=== PATIENT | female | born 1950 | race Caucasian/White ===

== ENCOUNTER → 2018-05-27 10:12 | Outpatient (CLI) | payer MEDICARE, OTHER, SELFPAY ==
--- NOTE | 2018-05-27 10:15 | BI_ITS ---
MAMMOGRAPHY - BILATERAL SCREENING 3-D LYNNETTE SYNTHESIS REASON FOR EXAM: Female, 67 years old. Bilateral Screening 3-D tomosynthesis PERTINENT HISTORY: Mother and grandmother with breast cancer.. TECHNIQUE: 2-D mammograms and 3-D Lynnette synthesis of the breast (s) were performed. CAD was performed. COMPARISON: None. FINDINGS: The breast composition is heterogeneously dense that can obscure small breast masses. Scattered benign calcifications are seen. No dense spiculated masses or suspicious microcalcifications are identified. No architectural distortion is identified. There is no skin thickening or retraction. There has been no significant change since the prior study. BI/SCREENING MAMM (CAD), BILAT IMPRESSION: No mammographic signs of malignancy. Routine yearly mammograms recommended. ASSESSMENT CATEGORY: BIRADS Category 1: Negative. A letter regarding these results will be sent to the patient by the facility within 30 days. FOLLOW UP RECOMMENDATION: Yearly follow up mammogram recommended. (A) Approximately 10% of breast cancers are not detected by mammography. A normal mammogram should not delay biopsy of a clinically suspicious abnormality. Electronically Signed: Sylvester Parker MD at 12:47 EDT , Service support ,
--- NOTE | 2018-05-27 10:18 | BD_ITS ---
STUDY: DUAL ENERGY X-RAY ABSORPTIOMETRY / DXA REASON FOR EXAM: Female, 67 years old. Postmenopausal screening TECHNIQUE: Bone Mineral Density (BMD) measurements of lumbar spine and bilateral hips were obtained. COMPARISON: 2015 FINDINGS: Lumbar Spine (L1-L4): g/cm2 (1.025) / T-score (-1.2) / Z-score (0.5) Findings are suggestive of osteopenia with a moderate fracture risk. Left Femur Total: g/cm2 (0.816) / T-score (-1.5) / Z-score (-0.1) Left Femoral Neck: g/cm2 (0.750) / T-score (-2.1) / Z-score (-0.4) Right Femur Total: g/cm2 (0.795) / T-score (-1.7) / Z-score (-0.2) Right Femoral Neck: g/cm2 (0.746) / T-score (-2.1) / Z-score (-0.4) The T-Scores on the most recent prior examination were: Lumbar Spine (L1-L4): There has been no change of bone density since the previous examination. BD/Dexa Bone Density Study IMPRESSION: The patient is considered osteopenic as outlined below according to World Jb Organization (WHO) criteria with a moderate fracture risk. There has been no significant change of bone density since the previous examination. Reference Information: The T-score is the number of standard deviations above or below the standard which is normal for young adults at their peak bone mineral density. The World Health Organization (WHO) interprets the T-scores as follows: Above -1 Normal bone density Between -1 and -2.5 Osteopenia Equal to / or below -2.5 Osteoporosis As a practical clinical guideline, osteopenia may be graded as follows: Mild -1 through -1.5 Moderate -1.6 through -2.0 Severe -2.1 through -2.4 The Z-score is the number of standard deviations above or below age-matched controls. A Z-score of less than -1.5 would be considered abnormal. References: 1. NIH Osteoporosis and Related Bone Diseases http://www.osteo.org 2. International Society for Clinical Densitometry http://www.iscd.org 3. National Osteoporosis Foundation http://www.nof.org Electronically Signed: Sylvester Parker MD at 8:00 EDT , Service support ,
== END ==
PROVIDERS: Family Provider Internal Medicine; PCP Internal Medicine; Visit Provider Internal Medicine
DX: Z12.31 Encounter for screening mammogram for malignant neoplasm of breast (principal); Z78.0 Asymptomatic menopausal state
CPT/HCPCS: 77063; 77067; 77080

== ENCOUNTER 2020-12-20 13:14 | Outpatient (RCR) | payer MEDICARE, OTHER, SELFPAY | END 2020-12-20 23:59 | LOC: IMMUN 13:14 | PROVIDERS: PCP Internal Medicine; Referring Provider Family Medicine; Visit Provider Family Medicine | DX: Z23 Encounter for immunization (principal) | CPT/HCPCS: 0011A; 0012A; 91301 ==

== ENCOUNTER 2022-11-12 09:30 | Outpatient (RCR) | payer MEDICARE, OTHER, SELFPAY ==
--- NOTE | 2022-11-06 15:29 | HP.PTEVAL ---
Patient's Visit Information STEFAN MORAN is a 72 year old F referred to Physical Therapy by Dr. 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 Date of Evaluation: 11/06/22 Physical Therapist: Shun Reddy, PT, Cert MDT, OCS - Visit Plan Frequency: 2x /Week Duration: 4 Weeks Plan: PT INTERVETIONS LUMBAR FLEXION ,DLS ,POSTURAL EX'S ,LE NFLEXABLITY AND MODALTIES FOR PAIN - Subjective This 72 y/o female presents to physical therapy with lumbar decompression L2-5 revision right L3-4 . Patient surgery 09/16/[address] Stafford at [facility]. Patient was in hospital 4 days due to pain unable due pain meds. Patient d/c to lumbar brace. Initially no lifting 10 #.Recently seen 3weeks doing good ,then 2 weeks developed more LS region and radiates to hip . Prior to surgery patient had leg pain. Patient had discectomy lumbar 25 years ago. No meds . Patient denies paresthesia/tingling . Coughing/sneezing-. Bowel/bladder -. Pain worse at night difficulty sleeping. Aggravating walking/standing ,bending and housework such as vacuuming. Alleviates factors none. Patient had MRI prior to surgery. No pain management or PT prior to surgery. Patient pain affects QOL and function . SOCAIL: . VOCATION: retired - Pain Bilateral Back Pain Intensity (Out of 10): 7 Pain Intensity Range: 10 Comment: walking - Objective POSTURE: mild forward posture. GAIT: reciprocal pattern. SYMMTRIES: align. PALPTION: unremarkable. NEURO: denies paresthesia/tingling ,reflexes L3-4,L4-5 ,L5-S1 2/3. MMT: quads/hams 4/5 ,hip flexion ( peak force ) 12.3 ,hip abduction 10.3. LUMBAR ROM: flexion min loss ,extension mod less ,side glides mod loss. FLEXABILITY: hamstrings min tight. - Special Tests L/S Slump test left side: Negative L/S Slump test right side: Negative L/S Left Straight Leg Raise: Negative L/S Right Straight Leg Raise: Negative - Balance/Special Test Scores Oswestry Low Back Score: 32 - Goals Goal 1:: Patient to be I with HEP lumbar Goal Time Frame: 4-6 Weeks Goal 2:: Patient to demonstrate 50% improvement with decrease pain and improved function Goal Time Frame: 4-6 Weeks Goal 3:: Patient to improve lumbar ROM for function of recovery for ADLS and run sweeper Goal Time Frame: 4-6 Weeks Goal 4:: Patient to improve peak force of hips to 10 to improve QOL and function Goal Time Frame: 4-6 Weeks Goal 5:: Patient to improve back oswestry score by 5 points to improve QOL and function Goal Time Frame: 4-6 Weeks - Rehabilitation Potential Physical Therapy Diagnosis: This patient underwent s/p lumbar decompression L2-5 revision right L3-4 with pain ,weakness hips decrease ROM for function of recovery affecting ADLS and housework tasks thus benefit from skilled PT Rehabilitation Potential: Good - Anticipated Interventions Patient/Client Instruction: Educate patient on: Condition, Plan of Care For the Purpose of:: To decrease pain, To increase ROM, To improve muscle performance and motor function, To improve ability to perform ADL's, To increase tolerance to activity/condition/position, To improve performance and independence with ADL's, To improve ability of physical actions for home/community/work/leisure, To improve health of tissue, To decrease soft tissue restriction, To increase flexibility/ROM, To reduce risk of recurrence Therapeutic Exercise to Include: Strength training, Endurance training, Body mechanics, Postural training, Flexibilty training, Active ROM, Dynamic Lumbar Stabilization For the Purpose of:: To decrease pain, To increase ROM, To improve muscle performance and motor function, To improve ability to perform ADL's, To increase tolerance to activity/condition/position, To improve ability of physical actions for home/community/work/leisure, To improve health of tissue, To decrease soft tissue restriction, To increase flexibility/ROM TENS: Yes IF ES: Yes Cryotherapy (ice pack, ice massage): Yes Thermo therapy (hot pack): Yes Ultrasound (thermal/non thermal): Yes For the Purpose of:: To decrease pain, To increase ROM, To improve nutrient delivery to tissue, To increase oxygenation perfusion, To improve health of tissue, To decrease soft tissue restriction Thank you for the opportunity to evaluate your patient. For Medicare and Medicare HMO plans, please review the plan of care and approve it. It will need to be FAXED BACK to us at [phone] for Medicare purposes. For Medicare only, by signing this I certify the plan of care. Please let me know if there are questions or concerns regarding this plan of care. Physician Signature: Date:
--- NOTE | 2023-05-13 13:25 | HP.PTDCNRP_ITS ---
Patient Information Patient Information: STEFAN MORAN was seen in my office for initial evaluation on 11/06/22. The following Plan of Care was established for this patient: POC Established Initial Frequency: 2x /Week Initial Duration: 4 Weeks Anticipated Interventions Patient/Client Instruction: Educate patient on: Condition and Plan of Care For the Purpose of:: To decrease pain, To increase ROM, To improve muscle performance and motor function, To improve ability to perform ADL's, To increase tolerance to activity/condition/position, To improve performance and i ndependence with ADL's, To improve ability of physical actions for home/community/work/leisure, To improve health of tissue, To decrease soft tissue restriction, To increase flexibility/ROM and To reduce risk of recurrence Therapeutic Exercise to Include: Strength training, Endurance training, Body mechanics, Postural training, Flexibilty training, Active ROM and Dynamic Lumbar Stabilization For the Purpose of:: To decrease pain, To increase ROM, To improve muscle performance and motor function, To improve ability to perform ADL's, To increase tolerance to activity/condition/position, To improve ability of physical actions for home/community/work/leisure, To improve health of tissue, To decrease soft tissue restriction and To increase flexibility/ROM TENS: Yes IF ES: Yes Cryotherapy (ice pack, ice massage): Yes Thermo therapy (hot pack): Yes Ultrasound (thermal/non thermal): Yes For the Purpose of:: To decrease pain, To increase ROM, To improve nutrient delivery to tissue, To increase oxygenation perfusion, To improve health of tissue and To decrease soft tissue restriction Last Seen Last Seen: This patient was last seen in our office . Pertinent comments regarding their Physical therapy will appear below: Patient seen for PT for lumbar stenosis for HEP At this point I will be discontinuing this patient from physical therapy. I would be happy to see this patient again in the future if found appropriate by the physician. Thank you! Shun Reddy, PT, Cert MDT, OCS Balance/Gait/Functional tests Balance/Special Test Scores Oswestry Low Back Score: 0
== END 2022-11-12 19:00 | disposition home or self-care (01) ==
LOC: PT 09:30
PROVIDERS: PCP Internal Medicine; Referring Provider Orthopaedic Surgery Orthopaedic Surgery of the Spine; Visit Provider Orthopaedic Surgery Orthopaedic Surgery of the Spine
DX: M48.062 Spinal stenosis, lumbar region with neurogenic claudication (principal)
CPT/HCPCS: 97110; 97162

== ENCOUNTER → 2023-05-12 | Outpatient (CLI) | payer MEDICARE, OTHER, SELFPAY ==
[2023-05-16 03:07] LABS: Clam <0.10 kU/L (Class 0); Codfish <0.10 kU/L (Class 0); Corn <0.10 kU/L (Class 0); Egg, White <0.10 kU/L (Class 0); Milk (Cow) <0.10 kU/L (Class 0); Peanut <0.10 kU/L (Class 0); SCALLOP <0.10 kU/L (Class 0); SESAME SEED <0.10 kU/L (Class 0); Shrimp <0.10 kU/L (Class 0); Soybean <0.10 kU/L (Class 0); Walnut, (Food) <0.10 kU/L (Class 0); Wheat <0.10 kU/L (Class 0)
== END | disposition home or self-care (01) ==
LOC: LAB 14:03
PROVIDERS: PCP Internal Medicine; Referring Provider Otolaryngology; Visit Provider Otolaryngology
DX: T78.40XA Allergy, unspecified, initial encounter (principal)
CPT/HCPCS: 36415; 86003

== ENCOUNTER 2023-08-12 15:13 | Emergency (ER) | payer MEDICARE, OTHER, SELFPAY ==
[2023-08-12 15:14] VITALS: BP 141/88; PULSE 64; RESP 18; TEMP 36.2; O2SAT 99
--- NOTE | 2023-08-12 15:58 | VDLE_ITS ---
Reason For Study: RLE PAIN RIGHT GSV is normal. CFV is compressible, spontaneous, phasic, competent and demonstrates normal augmentation. FV is compressible, spontaneous, phasic, competent and demonstrates normal augmentation. POP V is compressible, spontaneous, phasic, competent and demonstrates normal augmentation. T/P Trunk is compressible. PTV is compressible. RT PerV is compressible. Procedure This is a venous duplex using B-mode, color flow and spectral Doppler. Exam performed in department. The exam was diagnostic. A preliminary report was called and/or faxed to ED DEISI Mike. VL/Venous Duplex US, Unilateral Interpretation Summary Deep veins of the right lower extremity are patent and compressible segmentally . There is no evidence of right lower extremity deep vein thrombosis. The right great sapheno us vein appears patent and compressible segmentally. Ordering Physician: Sarah Cox Referring Physician: Emily Kyle M.D. Performed By: Leonidas Westfall RVT
--- NOTE | 2023-08-12 16:15 | RAD_ITS ---
INDICATION: cough EXAMINATION/TECHNIQUE: X-RAY - XR Chest 1 View COMPARISON: FINDINGS: LINES/DEVICES: None. LUNGS: No consolidation, edema or effusion. No pneumothorax. MEDIASTINUM AND CARDIOVASCULAR STRUCTURES: Cardiac silhouette not enlarged. Central airways and mediastinal contour are unremarkable. BONES AND SOFT TISSUES: Dextroscoliosis. RAD/Chest 1 View (Portable) IMPRESSION: No radiographic evidence of acute cardiopulmonary disease. Electronically Signed: Lalo Nelson DO at 16:37 EDT ,
[2023-08-12] MEDS: traMADol 50 MG Tablet PO (16:19)
[2023-08-12] MEDS: Ondansetron ODT 4 MG Tablet PO (16:19)
--- NOTE | 2023-08-12 16:35 | EX.ED.DYSGE1 ---
HPI History of Present Illness Chief Complaint: Lower Extremity Injury Detail of Chief Complaint: Right leg pain Informant: patient Onset/Context/Timing Onset: Yesterday Narrative Narrative: Patient presents secondary to sharp pain in the lower portion of her right leg. Patient was diagnosed with COVID on July 27. She has tested negative since that time. She states she continues to have cough with intermittent dizziness. Last evening she started getting pain in the back of her right thigh. Today she has had sharp severe pain in her right calf. She took ibuprofen prior to arrival. [facility] Medical History Deviated septum Hyperlipidemia Insomnia NAION (non-arteritic anterior ischemic optic neuropathy), left eye Optic nerve ischemia POAG (primary open-angle glaucoma) Raynauds phenomenon Syncope Home Medications zolpidem 5 mg tablet 5 mg PO QHS 12/22/16 [History Last Taken 12/21/16] atorvastatin 10 mg tablet 10 mg PO QHS 04/27/23 [History Last Taken Unknown] magnesium oxide 400 mg PO DAILY 04/27/23 [History Last Taken Unknown] netarsudil 0.02 % eye drops (Rhopressa) 1 drp ophthalmic (eye) QPM 04/27/23 [History Last Taken Unknown] sertraline 100 mg tablet 100 mg PO DAILY 04/27/23 [History Last Taken Unknown] tafluprost (PF) 0.0015 % eye drops in a dropperette 1 drp ophthalmic (eye) QPM 04/27/23 [History Last Taken Unknown] denosumab 60 mg/mL subcutaneous syringe (Prolia) 60 mg subcut [id number] 06/10/23 [History Last Taken Unknown] hydrocodone-acetaminophen 5-325mg 5mg-325mg 1 tab PO Q8H PRN Pain 3 days #10 TABLETS 08/12/23 [Rx Last Taken Unknown] ondansetron 4 mg disintegrating tablet 4 mg PO Q8H PRN PRN Nausea #10 tabs 08/12/23 [Rx Last Taken Unknown] prednisone 20 mg tablet 40 mg (2 x 20 mg) PO DAILY #10 tabs 08/12/23 [Rx Last Taken Unknown] Allergy/AdvReac Type Severity Reaction Status Date / Time azithromycin Allergy Unknown Vomiting Verified 08/12/23 15:14 benzonatate Allergy Unknown Vomiting Verified 08/12/23 15:14 ciprofloxacin Allergy Unknown Diarrhea Verified 08/12/23 15:14 metronidazole [From Flagyl] Allergy Unknown Diarrhea Verified 08/12/23 15:14 tapentadol Allergy Unknown Vomiting Verified 08/12/23 15:14 Penicillins Allergy Anaphylaxis Verified 08/12/23 15:14 latanoprost AdvReac Unknown burning Verified 08/12/23 15:14 eyes codeine AdvReac Upset Verified 08/12/23 15:14 Stomach Opioids - Morphine Analogues AdvReac Upset Verified 08/12/23 15:14 [narcotics] Stomach Family History Mother Breast cancer Diabetes Hypertension Cataract Father COPD (chronic obstructive pulmonary disease) Cataract Prostate cancer Grandmother CVA (cerebral vascular accident) Grandmother Diabetes Surgical History History of appendectomy History of augmentation of both breasts History of cholecystectomy History of laminectomy History of partial colectomy History of removal of implants of both breasts History of right breast biopsy History of shoulder surgery History of tonsillectomy and adenoidectomy Social History Smoking Status: Never smoker alcohol intake: current alcohol intake frequency: 0-2 drinks per day Alcohol type: wine substance use type: does not use caffeine: Yes Type: coffee Number of servings: 2 ROS ROS ED Constitutional Constitutional ED: Denies chills or fever(s) Eyes Eyes: Denies discharge from eye(s) ENT ENT ED: Denies discharge from eye(s), rhinorrhea or sore throat Cardiovascular Cardiovascular: Denies chest pain or palpitations Respiratory/Chest Respiratory/Chest: Reports cough; Denies dyspnea Gastrointestinal Gastrointestinal: Denies abdominal pain, nausea or vomiting Genitourinary Genitourinary ED: Denies dysuria Musculoskeletal Musculoskeletal: Reports extremity pain; Denies back pain Integumentary Denies Abrasions or rash Neurologic Neurologic: Denies headache(s) or weakness Psychiatric Psychiatric: Denies anxiety or depression Allergic/Immunologic Allergic/Immunologic ED: Denies lip swelling or urticaria EXAM Physical Exam Const Vital Signs: 08/12/23 15:14 Temperature 97.1 F L Temperature Source Temporal Pulse Rate 64 Respiratory Rate 18 Blood Pressure 141/88 H Blood Pressure Mean 105 Pulse Ox 99 Oxygen Delivery Method Room Air Positive well nourished and well developed General Appearance ED: well developed HEENT Reports moist mucous membranes Eyes EOMs intact bilaterally Neck no lymphadenopathy Chest Wall inspection of chest normal and palpation of chest normal Resp normal respiratory effort and clear to auscultation bilaterally Cardio regular rate and regular rhythm GI non-tender Palpation: soft Back/Spine no CVA tenderness Back/Spine Narrative: No thoracic or lumbar tenderness. No tenderness over the sciatic notch. Extremity normal to inspection Extremity Narrative: No significant leg edema noted. Good distal pulses. Patient reports muscular pain in her right calf. No significant skin changes noted. Neuro oriented x3 and no sensory deficits noted Motor Exam: strength 5/5 throughout Psych Mood & Affect: anxious Skin no rashes or lesions noted MDM MDM MDM Narrative Medical decision making narrative: Patient given tramadol and Zofran for pain. Right lower extremity ultrasound obtained to evaluate for DVT. Portable chest x-ray obtained to evaluate for infiltrate. Radiography Diagnostic Testing: Clinical Impression(s) from Imaging Studies Chest X-Ray 08/12/23 16:15 IMPRESSION: No radiographic evidence of acute cardiopulmonary disease. Electronically Signed: Lalo Nelson DO at 16:37 EDT Reading Location ID and State: [facility] / [place] Tel [phone], Service support , Treatment and Re-Evaluation :: Portable chest x-ray per my interpretation feels no focal infiltrate. Radiology interpretation is reviewed and agrees. Venous Doppler of the right lower extremity reveals no evidence of DVT. Patient reports no significant improvement in her pain after tramadol, but she did not get sick from the medicine when we gave Zofran with it. I will write her a short course of [place] and give her nausea medication. We discussed taking the Zofran 20 minutes before the pain pill and eating when she takes the pain medicine. This should help avoid the nausea and vomiting that she typically gets with pain pills. I will also write her a short burst of prednisone as I believe her pain is nerve related. She has a cane that she used here to ambulate and has a walker at home that she can use to help her get around. Discharge Plan Triage Chief Complaint: Lower Extremity Injury ED Provider: Sarah Cox Dx/Rx/DC Orders Clinical Impression: Acute leg pain, Radiculopathy Instructions: ED Sciatica Prescriptions: New prednisone 20 mg tablet 40 mg PO DAILY Qty: 10 0RF ondansetron 4 mg tablet,disintegrating 4 mg PO Q8H PRN PRN (Reason: Nausea) Qty: 10 0RF hydrocodone-acetaminophen 5-325 mg tablet 1 tab PO Q8H PRN (Reason: Pain) 3 Days Qty: 10 0RF No Action atorvastatin 10 mg tablet 10 mg PO QHS sertraline 100 mg tablet 100 mg PO DAILY tafluprost (PF) 0.0015 % dropperette 1 drp ophthalmic (eye) QPM Rhopressa 0.02 % drops 1 drp ophthalmic (eye) QPM magnesium oxide 400 mg magnesium tablet 400 mg PO DAILY Prolia 60 mg/mL syringe 60 mg subcut [id number] zolpidem 5 MG tablet 5 mg PO QHS Primary Care Provider: Emily Kyle Referrals: Emily Kyle MD [Primary Care Provider] - 3-5 Days if not improving Disposition Disposition: Home, Self Care
== END 2023-08-12 18:23 | disposition home or self-care (01) ==
PROVIDERS: Emergency Provider Emergency Medicine; PCP Internal Medicine; Visit Provider Emergency Medicine
DX: M79.661 Pain in right lower leg (principal); M54.10 Radiculopathy, site unspecified; Z86.16 Personal history of COVID-19
CPT/HCPCS: 71045; 93971; 99282